=== PATIENT | male | born 1955 | race Hispanic/Latino ===

== ENCOUNTER 2021-08-27 12:44 | Outpatient (CLI) | payer MEDICARE ==
[2021-08-27 14:07] LABS: SARS-CoV-2 NAA Rapid Test Not Detected (NotDetected)
== END 2021-08-27 12:45 | disposition home or self-care (01) ==
LOC: CSHLAB 12:44
PROVIDERS: ATTEND Internal Medicine Pulmonary Disease
DX: Z20.822 Contact with and (suspected) exposure to COVID-19 (principal)
CPT/HCPCS: U0002

== ENCOUNTER 2021-08-28 07:39 | Outpatient (CLI) | payer MEDICARE | END 2021-08-28 07:40 | disposition home or self-care (01) | LOC: CSHCP 07:39 | PROVIDERS: ATTEND Internal Medicine Pulmonary Disease | DX: R06.02 Shortness of breath (principal); R94.2 Abnormal results of pulmonary function studies | CPT/HCPCS: 94060; 94726; 94729; 94760 ==

== ENCOUNTER 2021-11-19 08:17 | Outpatient (CLI) | payer MEDICARE | END 2021-11-19 08:18 | disposition home or self-care (01) | LOC: CSHULT 08:17 | PROVIDERS: ATTEND Physician Assistant Medical | DX: K70.30 Alcoholic cirrhosis of liver without ascites (principal); R18.8 Other ascites; R16.1 Splenomegaly, not elsewhere classified | CPT/HCPCS: 76700 ==

== ENCOUNTER 2021-11-22 07:37 | Outpatient (CLI) | payer MEDICARE | END 2021-11-22 07:38 | disposition home or self-care (01) | LOC: CSHRAD 07:37 | PROVIDERS: ATTEND Internal Medicine Pulmonary Disease | DX: R06.00 Dyspnea, unspecified (principal); J98.6 Disorders of diaphragm | CPT/HCPCS: 76000 ==

== ENCOUNTER 2022-11-20 11:30 | Inpatient (IN) | payer MEDICARE ==
[2022-11-20 13:03] LABS: Hemoglobin 11.9 g/dL (13.5-17.5); Mean Corpuscular HGB CONC 34.2 g/dL (32.0-36.0); Mean Corpuscular Volume 96.4 fl (81.2-95.1); Mean Platelet Volume 9.7 fl (7.4-10.4); RBC Distribution Width 13.1 % (11.5-14.5); Red Blood Cell (RBC) Count 3.61 10x6/uL (4.32-5.72); White Blood Cell (WBC) Count 4.8 10x3/uL (3.5-10.5)
[2022-11-20 13:16] LABS: Platelet Count 89 10x3/uL (150-450)
[2022-11-20 13:17] LABS: INR-International Normal Ratio 1.1; PTT 29.2 sec (22.0-33.0); Prothrombin Time 11.4 sec (9.5-12.1)
[2022-11-20 13:19] LABS: ALT (SGPT) 25 U/L (8-55); AST (SGOT) 34 U/L (5-34); Albumin 3.8 g/dL (3.4-4.8); Alkaline Phosphatase 62 U/L (40-110); Anion Gap 12 mmol/L (10-20); BUN (Urea Nitrogen) 12 mg/dL (8.4-25.7); Bilirubin, Direct 0.6 mg/dL (0.1-0.3); Bilirubin, Total 1.5 mg/dL (0.2-1.2); Calc. Creatinine Clearance 0 mL/min (70-130); Calcium 9.2 mg/dL (7.8-10.44); Carbon Dioxide 25 mmol/L (23-31); Chloride 105 mmol/L (98-107); Estimated GFR 98; Glucose 134 mg/dL (80-115); Potassium 4.2 mmol/L (3.5-5.1); Protein, Total 7.3 g/dL (5.8-8.1); Sodium 138 mmol/L (136-145)
[2022-11-24 10:54] VITALS: BMI 23.8
[2022-11-26] MEDS ORDERED: Famotidine/PF 20 mg/2ml Vial ONE (06:52)
[2022-11-26] MEDS ORDERED: Lidocaine 1% PF 5 ML VIAL ONE (07:03)
[2022-11-26] MEDS ORDERED: Esmolol 100 MG/10 ML VIAL ONE (07:03)
[2022-11-26] MEDS ORDERED: Rocuronium Bromide 10 MG/ML (10ML VIAL) ONE (07:03)
[2022-11-26] MEDS ORDERED: Succinylcholine 200 MG/10 ml SYRINGE FS ONE (07:03)
[2022-11-26] MEDS ORDERED: Ondansetron PF 4 MG/2 ML Vial ONE (07:03)
[2022-11-26] MEDS ORDERED: Dexamethasone 4 mg/ml Vial ONE (07:03)
[2022-11-26] MEDS ORDERED: CEFAZOLIN 2 GM VIAL ONE (07:08)
[2022-11-26] MEDS ORDERED: ePHEDrine Sulfate 50 MG/10 ML VIAL ONE (07:53)
[2022-11-26 08:00] LABS: SARS-CoV-2 NAA Rapid Test Not Detected (NotDetected)
[2022-11-26] MEDS ORDERED: Bupivacaine/Epinephrine 0.25% 30 ML VIAL ONE (08:39)
[2022-11-26] MEDS ORDERED: Ketorolac Tromethamine 30 MG/ML VIAL ONE (08:55)
[2022-11-26] MEDS ORDERED: PROPOFOL 60 ML ONE (08:56)
[2022-11-26] MEDS ORDERED: PHENYLEPHRINE-NS 100 MCG/ML 10 ML SYRINGE ONE (10:13)
[2022-11-26] MEDS ORDERED: Fentanyl 100 MCG/2 ML VIAL ONE (11:14)
[2022-11-26] MEDS ORDERED: Morphine 4 MG/ML VIAL SLOW IVP PRN (11:42)
[2022-11-26] MEDS ORDERED: Ondansetron PF 4 MG/2 ML Vial IVP PRN (11:42)
[2022-11-26] MEDS ORDERED: TETANUS, DIPHTHERIA TOX,ADULT (TDVAX) 0.5 ML VIAL IM ONE (11:42)
[2022-11-26] MEDS ORDERED: Communication Order-Pharmacy FS SCH (11:45)
[2022-11-26] MEDS ORDERED: Ondansetron ODT 4 MG TAB PO PRN (11:53)
[2022-11-26] MEDS: CEFAZOLIN 2 GM in Sodium Chloride 0.9% 100 ML IVPB SCH (15:27)
[2022-11-26] MEDS: HYDROcodone/Acetaminophen 10/325 mg Tablet PO PRN ×2 (15:28→21:08)
[2022-11-26] MEDS: Ferrous Sulfate 325 MG TAB PO SCH (20:44)
[2022-11-26] MEDS: metFORMIN 500 MG TAB PO SCH (20:45)
[2022-11-26] MEDS ORDERED: Rosuvastatin 10 MG TAB PO SCH (21:00)
[2022-11-27] MEDS: CEFAZOLIN 2 GM in Sodium Chloride 0.9% 100 ML IVPB SCH ×2 (00:33→09:34)
[2022-11-27] MEDS: HYDROcodone/Acetaminophen 10/325 mg Tablet PO PRN ×3 (02:09→09:38)
[2022-11-27 08:43] VITALS: TEMP 98.2
[2022-11-27] MEDS ORDERED: Propranolol HCl LA 80 MG CAP PO SCH (09:00)
[2022-11-27] MEDS ORDERED: Lisinopril 20 MG TAB PO SCH (09:00)
[2022-11-27] MEDS ORDERED: Ezetimibe 10 MG TAB PO SCH (09:00)
[2022-11-27] MEDS ORDERED: Amlodipine 5 MG TAB PO SCH (09:00)
[2022-11-27] MEDS: Ferrous Sulfate 325 MG TAB PO SCH (09:35)
[2022-11-27] MEDS: metFORMIN 500 MG TAB PO SCH (09:36)
[2022-11-27 11:53] VITALS: BP 124/69
== END 2022-11-27 12:30 | disposition home or self-care (01) | DRG 455 ==
LOC: MERGE 11-26 05:36 → CSHERHOLD 11-26 05:36 → CSHTELE 11-26 14:40
PROVIDERS: ADMIT Orthopaedic Surgery; ATTEND Orthopaedic Surgery
PROC: 0SG0071 Fusion of Lumbar Vertebral Joint with Autologous Tissue Substitute, Posterior Approach, Posterior Column, Open Approach (ICD-10-PCS; principal; 2022-11-26)
PROC: 0SG00AJ Fusion of Lumbar Vertebral Joint with Interbody Fusion Device, Posterior Approach, Anterior Column, Open Approach (ICD-10-PCS; 2022-11-26)
PROC: 0SG30AJ Fusion of Lumbosacral Joint with Interbody Fusion Device, Posterior Approach, Anterior Column, Open Approach (ICD-10-PCS; 2022-11-26)
PROC: 0SG3071 Fusion of Lumbosacral Joint with Autologous Tissue Substitute, Posterior Approach, Posterior Column, Open Approach (ICD-10-PCS; 2022-11-26)
PROC: 01NB0ZZ Release Lumbar Nerve, Open Approach (ICD-10-PCS; 2022-11-26)
PROC: 01NR0ZZ Release Sacral Nerve, Open Approach (ICD-10-PCS; 2022-11-26)
PROC: 0SB20ZZ Excision of Lumbar Vertebral Disc, Open Approach (ICD-10-PCS; 2022-11-26)
PROC: 0SB40ZZ Excision of Lumbosacral Disc, Open Approach (ICD-10-PCS; 2022-11-26)
PROC: 4A11X4G Monitoring of Peripheral Nervous Electrical Activity, Intraoperative, External Approach (ICD-10-PCS; 2022-11-26)
DX: M48.061 Spinal stenosis, lumbar region without neurogenic claudication (principal); I25.10 Atherosclerotic heart disease of native coronary artery without angina pectoris; E11.9 Type 2 diabetes mellitus without complications; Z20.822 Contact with and (suspected) exposure to COVID-19; Z91.048 Other nonmedicinal substance allergy status; Z88.6 Allergy status to analgesic agent; Z88.0 Allergy status to penicillin; Z88.2 Allergy status to sulfonamides; M48.07 Spinal stenosis, lumbosacral region; M43.16 Spondylolisthesis, lumbar region; M43.17 Spondylolisthesis, lumbosacral region; M51.16 Intervertebral disc disorders with radiculopathy, lumbar region; M51.17 Intervertebral disc disorders with radiculopathy, lumbosacral region
CPT/HCPCS: 36415; 72110; 80048; 80076; 85027; 85610; 85730; 86850; 86900; 86901; 94760; C1713; C1889; J1100; J1885; J2405; J2704; J3010; J3490; S0028; U0002

== ENCOUNTER 2022-11-20 11:47 | Outpatient (CLI) | payer MEDICARE ==
[2022-11-20 13:03] LABS: Hemoglobin 11.9 g/dL (13.5-17.5); Mean Corpuscular HGB CONC 34.2 g/dL (32.0-36.0); Mean Corpuscular Volume 96.4 fl (81.2-95.1); Mean Platelet Volume 9.7 fl (7.4-10.4); RBC Distribution Width 13.1 % (11.5-14.5); Red Blood Cell (RBC) Count 3.61 10x6/uL (4.32-5.72); White Blood Cell (WBC) Count 4.8 10x3/uL (3.5-10.5)
[2022-11-20 13:16] LABS: Platelet Count 89 10x3/uL (150-450)
[2022-11-20 13:17] LABS: INR-International Normal Ratio 1.1; PTT 29.2 sec (22.0-33.0); Prothrombin Time 11.4 sec (9.5-12.1)
[2022-11-20 13:19] LABS: ALT (SGPT) 25 U/L (8-55); AST (SGOT) 34 U/L (5-34); Albumin 3.8 g/dL (3.4-4.8); Alkaline Phosphatase 62 U/L (40-110); Anion Gap 12 mmol/L (10-20); BUN (Urea Nitrogen) 12 mg/dL (8.4-25.7); Bilirubin, Direct 0.6 mg/dL (0.1-0.3); Bilirubin, Total 1.5 mg/dL (0.2-1.2); Calc. Creatinine Clearance 0 mL/min (70-130); Calcium 9.2 mg/dL (7.8-10.44); Carbon Dioxide 25 mmol/L (23-31); Chloride 105 mmol/L (98-107); Estimated GFR 98; Glucose 134 mg/dL (80-115); Potassium 4.2 mmol/L (3.5-5.1); Protein, Total 7.3 g/dL (5.8-8.1); Sodium 138 mmol/L (136-145)
== END 2022-11-20 11:48 | disposition home or self-care (01) ==
LOC: CSHLAB 11:47
PROVIDERS: ATTEND Orthopaedic Surgery
DX: Z01.818 Encounter for other preprocedural examination (principal); M54.50 Low back pain, unspecified; M54.16 Radiculopathy, lumbar region
CPT/HCPCS: 80048; 80076; 85027; 85610; 85730; 86850; 86900; 86901; 93005; 93010

== ENCOUNTER 2023-01-13 08:39 | Outpatient (CLI) | payer MEDICARE ==
[2023-01-13] MEDS ORDERED: Iopamidol 300 61% 100 ML VIAL FS ONE (08:55)
== END 2023-01-13 08:40 | disposition home or self-care (01) ==
LOC: CSHCT 08:39
PROVIDERS: ATTEND Physician Assistant Medical
DX: K70.30 Alcoholic cirrhosis of liver without ascites (principal); I85.00 Esophageal varices without bleeding; R16.1 Splenomegaly, not elsewhere classified; K76.6 Portal hypertension; I85.10 Secondary esophageal varices without bleeding; R18.8 Other ascites; K63.9 Disease of intestine, unspecified
CPT/HCPCS: 74170; 82565